=== PATIENT | female | born 1950 | race Asian ===

== ENCOUNTER 2024-12-13 17:33 | Emergency (ER) | payer MEDICARE, OTHER ==
[~2024-12-13] VITALS: Ht 167.6 cm; Wt 86.1 kg
[2024-12-13 18:03] LABS: BASOPHILS 0.6 % (0.1-1.2); EOSINOPHILS 0.6 % (0.7-5.8); HEMATOCRIT 37.5 % (34.1-44.9); HEMOGLOBIN 11.9 g/dL (11.2-15.7); LYMPHOCYTES 9.7 % (19.3-51.7); MCH 31.4 PG (25.6-32.2); MCHC 31.7 g/dL (32.2-35.5); MCV 98.9 fL (79.4-94.8); MONOCYTES 6.4 % (4.7-12.5); NEUTROPHILS 82.3 % (34.0-71.1); PLATELET COUNT 273 K/uL (182-369); RBC 3.79 M/uL (3.93-5.22)
[2024-12-13 18:19] LABS: ALBUMIN 3.4 g/dL (3.4-5.0); ALBUMIN/GLOBULIN RATIO 0.79 (1.1-2.4); ALCOHOL, MEDICAL <3 ng/dL (<3); ALKALINE PHOSPHATASE 98 U/L (46-116); ALT (SGPT) 22 U/L (14-59); ANION GAP 14.7 (7-21); AST (SGOT) 22 U/L (15-37); BILIRUBIN, TOTAL 0.4 mg/dL (0.2-1.0); BUN/CREATININE RATIO 6.26 (6.0-28.6); CALCIUM 9.4 mg/dL (8.5-10.1); CARBON DIOXIDE 28 mmol/L (21-32); CHLORIDE 98 mmol/L (98-107); CREATININE, SERUM 6.23 mg/dL (0.55-1.02); GLOMERULAR FILTRATION RATE,EST 7 mL/min (>60); POTASSIUM 4.7 mmol/L (3.5-5.1); PROTEIN, TOTAL 7.7 g/dL (6.4-8.2); UREA NITROGEN 39 mg/dL (7-18)
[2024-12-13 18:24] LABS: LACTIC ACID, BLOOD 1.5 mmol/L (0.4-2.0)
[2024-12-13 20:41] VITALS: BP 149/67
--- NOTE | 2024-12-13 21:40 | EKG ---
[facility] [address] [facility] [place] [address] Signed Normal sinus rhythm Normal ECG No previous ECGs available Confirmed by Latoya Washington MD () on 12/13/2024 9:40:37 PM Electronically Signed By: LATOYA WASHINGTON MD [id number] PATIENT NAME: LAZ ROUSE Electrocardiogram DATE OF : 52 PHYSICIAN: LATOYA WASHINGTON MD REPORT #: [id number] REPORT IS CONFIDENTIAL AND NOT TO BE RELEASED WITHOUT AUTHORIZATION
== END 2024-12-13 20:40 | disposition home or self-care (01) ==
LOC: ED 17:33
PROVIDERS: Emergency Medicine
DX: R41.82 Altered mental status, unspecified (principal); E11.22 Type 2 diabetes mellitus with diabetic chronic kidney disease; N18.6 End stage renal disease; Z99.2 Dependence on renal dialysis
CPT/HCPCS: 36415; 70450; 71045; 80053; 81001; 83605; 85025; 93005; 93010; 99285-25; G0480